=== PATIENT | female | born 1970 | race Caucasian/White ===

== ENCOUNTER 2018-01-04 10:44 | Day surgery (SDC) | END 2018-01-04 15:40 | disposition home or self-care (01) ==

== ENCOUNTER 2019-01-19 21:38 | Emergency (ER) | payer OTHER ==
[~2019-01-19] VITALS: Ht 160 cm; Wt 83.6 kg
[~2019-01-19 21:38] MED LIST: CYCL10TA7 PO; HYDR-4011 PO; NAPR-985 PO
[2019-01-19 21:44] VITALS: Ht 160 cm; Wt 83.6 kg
[2019-01-20] MEDS ORDERED: KETOROLAC 15 MG INJ IV ONE (00:09)
--- NOTE | 2019-01-20 00:27 | ERD ---
ER Documentation Chief Complaint Chief Complaint jamee flank pain x a month, worst x the past 2 days HPI This is a 48-year-old female with a past medical history of hyperlipidemia, diabetes, chronic back pain who is presenting with worsening low back pain. 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 She is frequently moving heavy objects and down on her knees to clean homes. The patient endorses waxing and waning moderate aching sore occasionally sharp bilateral lower abdominal pain. The patient reports that her pain is exacerbated by movement and heavy lifting. It is relieved by rest. The patient denies feeling sick recently. The patient denies fever or chills. The patient has had no headache or vision changes. The patient does not endorse neck pain. The patient denies lightheadedness or dizziness. The patient has had no chest pain or trouble breathing. The patient denies nausea or vomiting. The patient denies abdominal pain. The patient denies changes to bowel movements or urination. The patient has had no focal deficits. The patient has had no weakness or numbness or tingling to the face or extremities. ROS All systems reviewed and are negative except as per history of present illness. Medications Home Meds Active Scripts Cyclobenzaprine Hcl* (Cyclobenzaprine Hcl*) 10 Mg Tablet, 10 MG PO TID, #15 TAB Prov:DARION SÁNCHEZ PA-C 09/05/18 Hydrocodone/Acetaminophen ([place] 5-325 Tablet) 1 Each Tablet, 1 TAB PO Q6H PRN for PAIN, #7 TAB Prov:DARION SÁNCHEZ PA-C 09/05/18 Naproxen* (Naprosyn*) 500 Mg Tablet, 500 MG PO BID PRN for PAIN AND/OR INFLAMMATION, #30 TAB Prov:DARION SÁNCHEZ PA-C 09/05/18 Allergies Allergies: Coded Allergies: No Known Allergy (Unverified , 01/04/18) PMhx/Soc History of Surgery: Yes (lap chol, csection, brest implants) Anesthesia Reaction: No Hx Neurological Disorder: No Hx Respiratory Disorders: No Hx Cardiac Disorders: Yes (Hyperlipidemia, diabetes) Hx Psychiatric Problems: No Hx Miscellaneous Medical Probl: Yes (Back pain) Hx Alcohol Use: No Hx Substance Use: No Hx Tobacco Use: No Smoking Status: Never smoker FmHx Family History: diabetes Physical Exam Vitals Vital Signs Date Temp Pulse Resp B/P (MAP) Pulse Ox O2 O2 Flow FiO2 Time Delivery Rate 01/19/19 97.9 89 18 119/80 98 21:44 (93) Physical Exam Const: No acute distress Head: Atraumatic Eyes: Normal Conjunctiva ENT: Normal External Ears, Nose and Mouth. Neck: Full range of motion. No meningismus. Resp: Clear to auscultation bilaterally Cardio: Regular rate and rhythm, no murmurs Abd: Soft, non tender, non distended. Normal bowel sounds Skin: No petechiae or rashes Back: No midline or flank tenderness. Bilateral lumbar paraspinal tenderness, worse on the left. Ext: No cyanosis, or edema Neur: Awake and alert Psych: Normal Mood and Affect Result Diagram: 01/19/19224101/19/192241 Results 24 hrs Laboratory Tests Test 01/19/19 22:42 01/19/19 22:57 01/19/19 23:01 White Blood Count 5.6 10^3/ul Red Blood Count 4.31 10^6/ul Hemoglobin 12.5 g/dl Hematocrit 36.8 % Mean Corpuscular Volume 85.4 fl Mean Corpuscular Hemoglobin 29.0 pg Mean Corpuscular 34.0 g/dl Hemoglobin Concent Red Cell Distribution Width 13.0 % Platelet Count 245 10^3/UL Mean Platelet Volume 10.4 fl Immature Granulocytes % 0.200 % Neutrophils % 49.1 % Lymphocytes % 35.3 % Monocytes % 11.3 % Eosinophils % 3.4 % Basophils % 0.7 % Nucleated Red Blood Cells % 0.0 /100WBC Immature Granulocytes # 0.010 10^3/ul Neutrophils # 2.7 10^3/ul Lymphocytes # 2.0 10^3/ul Monocytes # 0.6 10^3/ul Eosinophils # 0.2 10^3/ul Basophils # 0.0 10^3/ul Nucleated Red Blood Cells # 0.0 10^3/ul Urine Color YELLOW Urine Clarity CLEAR Urine pH 6.0 Urine Specific [employer] 1.016 Urine Ketones NEGATIVE mg/dL Urine Nitrite NEGATIVE mg/dL Urine Bilirubin NEGATIVE mg/dL Urine Urobilinogen NEGATIVE mg/dL Urine Leukocyte Esterase NEGATIVE Corey/ul Urine Hemoglobin NEGATIVE mg/dL Urine Glucose NEGATIVE mg/dL Urine Total Protein NEGATIVE mg/dl Sodium Level 140 mmol/L Potassium Level 3.7 mmol/L Chloride Level 106 mmol/L Carbon Dioxide Level 28 mmol/L Anion Gap 6 Blood Urea Nitrogen 18 mg/dl Creatinine 0.53 mg/dl Est Glomerular Filtrat > 60 mL/min Rate mL/min Glucose Level 149 mg/dl Calcium Level 9.0 mg/dl Total Bilirubin 0.4 mg/dl Direct Bilirubin 0.00 mg/dl Indirect Bilirubin 0.4 mg/dl Aspartate Amino Transf (AST/SGOT) 24 IU/L Alanine 20 IU/L Aminotransferase (ALT/SGPT) Alkaline Phosphatase 85 IU/L Total Protein 7.2 g/dl Albumin 4.1 g/dl Globulin 3.10 g/dl Albumin/Globulin Ratio 1.32 Lipase 64 U/L Bedside Glucose 159 mg/dL POC Beta HCG, Qualitative NEGATIVE Procedures/MDM MDM The patient's presentation warrants further investigation. Previous medical records, if available, were reviewed. LABS The patient's laboratory testing was obtained and reviewed. No emergent treatment was required unless described below. CBC: No E/o systemic infection or severe anemia or thrombocytopenia Chemistry: No E/o severe acidosis or alkalosis or renal failure or liver disease or diabetic ketoacidosis Lipase: No E/o pancreatitis Urine: No E/o acute infection or hematuria TREATMENT/DISPOSITION The patient presents with low back pain. I do suspect a musculoskeletal etiology. The patient's renal function and liver function are normal. I do not suspect a renal pathology. There is no evidence of UTI. I do not suspect pyelonephritis. The patient does not have a palpable abdominal mass. I do not suspect AAA. The patient's lipase is normal. I do not suspect pancreatitis. There is no trauma or injury. I do not suspect a retroperitoneal bleed. I do not suspect fracture or dislocation. The patient was treated with Toradol in the emergency department. DISCHARGE Upon reevaluation of the patient, symptoms have improved. No emergent diagnoses were identified. At this time, I feel that the patient stable for discharge. The patient was instructed to follow-up with a primary care physician in 1-3 days. The patient will be given strict precautions with which to return to the emergency department. Prescriptions: Ibuprofen, Flexeril Disclaimer: Inadvertent spelling and grammatical errors are likely due to EHR/dictation software use and do not reflect on the overall quality of patient care. Note that the electronic time recorded on this note does not necessarily reflect the actual time of the patient encounter. Departure Diagnosis: Primary Impression: Low back pain Chronicity: chronic Back pain laterality: bilateral Sciatica presence: without sciatica Qualified Codes: M54.5 - Low back pain; G89.29 - Other chronic pain Condition: Stable Patient Instructions: Back Pain (Acute Or Chronic) Additional Instructions: Thank you for for coming to [facility] for your care today. Please ask your nurse or provider if you have questions about your care today and do not leave until all your questions have been answered. Please use any medications given as directed and follow-up with your doctor (or the doctor you were referred to) in the next 1-3 days. If you do not have a primary care doctor you may follow up at the [facility] or critical access hospital (listed below). You may also use motrin and tylenol as needed for fever and/or pain unless instructed otherwise by your provider or nurse. Indications for more urgent follow-up have been discussed, but you may return to the Emergency Department at ANY time for any worrisome or worsening symptoms. If you have abdominal pain, please know that no test or exam you received is perfect and you should follow up within 8 hours for continued pain. If you had any imaging studies today, such as an X-Ray or CT Scan, these studies will be reviewed later by a radiologist. You will be called if there are important findings that were not identified today, so make sure the contact information you provided at registration is correct. If you received any narcotic pain control medicine today, such as Vicodin, Morphine or Dilaudid, your coordination and judgment may be affected for a number of hours. Please do not drive or operate heavy machinery, and you may want someone to assist you at home. If you were given a prescription for narc otic medication, be aware that it is very addictive- use sparingly and only if necessary. PLEASE SEEK FURTHER EVALUATION AND MANAGEMENT AT YOUR DOCTORS OFFICE WITHIN THE NEXT 1-3 DAYS. IT IS YOUR RESPONSIBILITY TO MAKE AN APPOINTMENT FOR FOLOW-UP CARE. IF YOU HAVE A PRIMARY DOCTOR, PLEASE CALL THEIR OFFICE TO SCHEDULE AN APPOINTMENT FOR FOLLOW UP. IF YOU DO NOT HAVE A PRIMARY DOCTOR YOU CAN CALL OUR PHYSICIAN REFERRAL HOTLINE AT IF YOU CAN NOT AFFORD TO SEE A PHYSICIAN YOU CAN CHOSE FROM THE FOLLOWING [facility]: [facility] [address] [facility] [address] [facility] [address] [facility] [address] [facility] [facility] [address] [facility]. [facility]. [address] ERIS DUMONT MD Jan 20, 2019 00:27
[2019-01-20] MEDS ORDERED: IBUP-1542 PO (00:28)
[2019-01-20] MEDS ORDERED: CYCL5TAB PO (00:28)
[2019-01-20 00:37] VITALS: BP 116/71; PULSE 67; RESP 16
== END 2019-01-20 00:38 | disposition home or self-care (01) ==
LOC: E/R 21:38
DX: M54.5 Low back pain (principal); E11.9 Type 2 diabetes mellitus without complications
CPT/HCPCS: 80053; 81003; 81025; 82962; 83690; 85025; 96374; J1885; Z7502